=== PATIENT | female | born 1995 | race Caucasian/White ===

== ENCOUNTER 2017-10-22 18:44 | Emergency (ER) | payer SELFPAY ==
[~2017-10-22] VITALS: Ht 172.7 cm; Wt 120.0 kg
[2017-10-22 18:45] VITALS: BP 166/97; PULSE 88; RESP 18; TEMP 98.6; O2SAT 99
[2017-10-22 20:20] LABS: BILIRUBIN, URINE NEG (NEG); BLOOD, URINE NEG (NEG); GLUCOSE,URINE NEG (NEG); KETONE, URINE NEG (NEG); NITRITE,URINE NEG (NEG); SQUAMOUS EPITHELIAL CELL URINE 2 /hpf (0-5); URINE COLOR YELLOW (YELLW/STRAW); URINE LEUKOCYTE ESTERASE NEG (NEG)
--- NOTE | 2017-10-22 21:16 | PD ---
HPI Chief Complaint: Abdominal Pain Time Seen by Provider: 20:44 Travel History International Travel<30 days: No Contact w/Intl Traveler<30days: No Traveled to known affect area: No History of Present Illness HPI 22-year-old female presents to the ED for evaluation of 2 day history of episodic lower abdominal pain. Onset at rest. Described as a pressure. Maximally 8/10. No alleviating or exacerbating factors reported. Patient denies fever, chills, nausea, vomiting, dysuria, urinary urgency, back pain, vaginal discharge, vaginal bleeding, changes in bowel habits. Patient states last menstrual period 09/26/17. She endorses unprotected sex with a single male partner. She is unsure of the last time she had a pelvic exam. She states that she was worked up for PCOS but never completed the evaluation. [facility] Past Medical History Anxiety: Yes Tetanus Vaccination: > 5 Years Influenza Vaccination: No ?: Unknown LMP: 09/27/17 Social History Alcohol Use: Yes (socially) Tobacco Use: No Substance Use: Yes (marijuana) Allergies-Medications (Allergen,Severity, Reaction): Coded Allergies: Sulfa (Sulfonamide Antibiotics) (Verified Allergy, Unknown, 10/22/17) Reported Meds & Prescriptions Reported Meds & Active Scripts Active No Active Prescriptions or Reported Medications Review of Systems Except as stated in HPI: all other systems reviewed are Neg Physical Exam Narrative GENERAL: Well-nourished, well-developed pleasant, obese white female in no acute distress. SKIN: Focused skin assessment warm/dry. HEAD: Normocephalic. EYES: No scleral icterus. No injection or drainage. NECK: Supple, trachea midline. No JVD or lymphadenopathy. CARDIOVASCULAR: Regular rate and rhythm without murmurs, gallops, or rubs. RESPIRATORY: Breath sounds clear and equal bilaterally. No accessory muscle use. GASTROINTESTINAL: Abdomen soft, nondistended. Tender to palpation in bilateral lower abdominal quadrants. Active bowel sounds. MUSCULOSKELETAL: No cyanosis, or edema. BACK: Nontender without obvious deformity. No CVA tenderness. Data Data Last Documented VS Vital Signs Date Time Temp Pulse Resp B/P (MAP) Pulse Ox O2 Delivery O2 Flow Rate FiO2 10/22/17 23:28 10/22/17 18:45 98.6 88 18 99 Room Air Orders Orders Urinalysis - C+S If Indicated (10/22/17 19:18) Ed Urine Pregnancytest Poc (10/22/17 19:18) Ct Abd/Pel W Iv Contrast(Rout) (10/22/17 21:13) Complete Blood Count With Diff (10/22/17 21:16) Comprehensive Metabolic Panel (10/22/17 21:16) Lactic Acid (10/22/17 21:16) ^ Insert Iv (10/22/17 21:16) Iohexol 350 Inj (Omnipaque 350 Inj) (10/22/17 22:50) Ed Discharge Order (10/22/17 23:14) Labs Laboratory Tests Test 10/22/17 19:40 10/22/17 21:30 10/22/17 21:35 Urine Color YELLOW Urine Turbidity CLEAR Urine pH 7.0 Urine Specific [place] 1.016 Urine Protein NEG mg/dL Urine Glucose (UA) NEG mg/dL Urine Ketones NEG mg/dL Urine Occult Blood NEG Urine Nitrite NEG Urine Bilirubin NEG Urine Urobilinogen LESS THAN 2.0 MG/DL Urine Leukocyte Esterase NEG Urine RBC 1 /hpf Urine Squamous Epithelial Cells 2 /hpf Microscopic Urinalysis Comment CULT NOT INDICATED White Blood Count 12.2 TH/MM3 Red Blood Count 5.18 MIL/MM3 Hemoglobin 13.8 GM/DL Hematocrit 41.3 % Mean Corpuscular Volume 79.9 FL Mean Corpuscular Hemoglobin 26.7 PG Mean Corpuscular Hemoglobin Concent 33.4 % Red Cell Distribution Width 14.0 % Platelet Count 268 TH/MM3 Mean Platelet Volume 9.3 FL Neutrophils (%) (Auto) 63.7 % Lymphocytes (%) (Auto) 27.3 % Monocytes (%) (Auto) 7.2 % Eosinophils (%) (Auto) 1.4 % Basophils (%) (Auto) 0.4 % Neutrophils # (Auto) 7.8 TH/MM3 Lymphocytes # (Auto) 3.3 TH/MM3 Monocytes # (Auto) 0.9 TH/MM3 Eosinophils # (Auto) 0.2 TH/MM3 Basophils # (Auto) 0.0 TH/MM3 CBC Comment DIFF FINAL Differential Comment Blood Urea Nitrogen 7 MG/DL Creatinine 0.66 MG/DL Random Glucose 62 MG/DL Total Protein 8.6 GM/DL Albumin 3.6 GM/DL Calcium Level 9.0 MG/DL Alkaline Phosphatase 89 U/L Aspartate Amino Transf (AST/SGOT) 36 U/L Alanine Aminotransferase (ALT/SGPT) 14 U/L Total Bilirubin 1.0 MG/DL Sodium Level 135 MEQ/L Potassium Level 4.9 MEQ/L Chloride Level 106 MEQ/L Carbon Dioxide Level 20.5 MEQ/L Anion Gap 9 MEQ/L Estimat Glomerular Filtration Rate 110 ML/MIN Lactic Acid Level 0.8 mmol/L MDM Medical Decision Making Medical Screen Exam Complete: Yes Emergency Medical Condition: Yes Differential Diagnosis Musculoskeletal pain versus dysmenorrhea versus UTI versus versus torsion ovary versus early appendicitis versus other Narrative Course 22-year-old female presents to the ED for evaluation of 2 day history of episodic lower abdominal pain. Patient denies fever, chills, nausea, vomiting, dysuria, urinary urgency, back pain, vaginal discharge, vaginal bleeding, changes in bowel habits. LMP 09/26/17. She endorses unprotected sex with a single male partner. She states that she was worked up for PCOS but never completed the evaluation. Currently asymptomatic. Vitals reviewed. Physical exam reveals a nontoxic-appearing white female in no acute distress. Chest CTA B. Abdomen soft, tender to palpation in bilateral lower quadrants and suprapubic region. Exam otherwise unremarkable. CBC: Mild elevation of the white count, likely stress related. CMP: No concerning abnormalities. Lactic acid 0.8. UA: No culture indicated. CT abdomen and pelvis: Bilateral ovarian cysts, right side 7.74.6 cm. Left 5.3 cm. I discussed the results of the workup with the patient. She was provided copies of the CT report. She is instructed to follow up with a client architect, return for worsening symptoms. She indicated understanding of the instructions and is agreeable with the care plan. The patient is stable and discharged home. Diagnosis Primary Impression: Ovarian cyst Qualified Codes: N83.201 - Unspecified ovarian cyst, right side; N83.202 - Unspecified ovarian cyst, left side Referrals: [facility] Patient Instructions: General Instructions, Ovarian Cyst (ED) Scripts No Active Prescriptions or Reported Meds Disposition: DISCHARGE HOME Condition: Stable Marta Nunez Oct 22, 2017 21:16
[2017-10-22 21:56] LABS: AUTOMATED NEUTROPHIL # 7.8 TH/MM3 (1.8-7.7); BASOPHIL % 0.4 % (0.0-2.0); EOSINOPHIL # 0.2 TH/MM3 (0-0.4); EOSINOPHIL % 1.4 % (0.0-4.0); HEMATOCRIT 41.3 % (35.0-46.0); HEMOGLOBIN 13.8 GM/DL (11.6-15.3); LYMPH % 27.3 % (9.0-44.0); LYMPHOCYTE # 3.3 TH/MM3 (1.0-4.8); MEAN CELL VOLUME 79.9 FL (80.0-100.0); MEAN CORPUSCULAR HEMOGLOBIN 26.7 PG (27.0-34.0); MEAN CORPUSCULAR HGB CONC 33.4 % (32.0-36.0); MEAN PLATELET VOLUME 9.3 FL (7.0-11.0); MONO % 7.2 % (0.0-8.0); MONOCYTE # 0.9 TH/MM3 (0-0.9); NEUT % 63.7 % (16.0-70.0); PLATELET COUNT 268 TH/MM3 (150-450); RED BLOOD COUNT 5.18 MIL/MM3 (4.00-5.30); WHITE BLOOD COUNT 12.2 TH/MM3 (4.0-11.0)
[2017-10-22 22:09] LABS: ALBUMIN 3.6 GM/DL (3.4-5.0); AST (GOT) 36 U/L (15-37); BICARBONATE 20.5 MEQ/L (21.0-32.0); BLOOD UREA NITROGEN 7 MG/DL (7-18); CHLORIDE 106 MEQ/L (98-107); CREATININE 0.66 MG/DL (0.50-1.00); GLOMERULAR FILTRATION RATE 110 ML/MIN (>89); GLUCOSE,RANDOM 62 MG/DL (74-106); SODIUM (NA) 135 MEQ/L (136-145)
[2017-10-22 22:10] LABS: ALT (GPT) 14 U/L (10-53)
[2017-10-22 22:12] LABS: ALKALINE PHOSPHATASE 89 U/L (45-117); TOTAL PROTEIN 8.6 GM/DL (6.4-8.2)
[2017-10-22] MEDS ORDERED: IOHEXOL 350 MG/ML 10 ML VIAL (for RAD DIAG) IVCONTRAST ONE (22:50)
--- NOTE | 2017-10-22 23:06 | RADRPT ---
EXAM DATE/TIME: 10/22/2017 22:45 [place] COMPARISON: No previous studies available for comparison. INDICATIONS : Lower abdominal pain. IV CONTRAST: 100 cc Omnipaque 350 (iohexol) IV ORAL CONTRAST: No oral contrast ingested. RADIATION DOSE: 16.92 CTDIvol (mGy) MEDICAL HISTORY : None SURGICAL HISTORY : None. ENCOUNTER: Initial ACUITY: 2 days PAIN SCALE: 8/10 LOCATION: Bilateral lower quadrant TECHNIQUE: Volumetric scanning of the abdomen and pelvis was performed. Using automated exposure control and ad justment of the mA and/or kV according to patient size, radiation dose was kept as low as reasonably achievable to obtain optimal diagnostic quality images. DICOM format image data is available electro nically for review and comparison. FINDINGS: LOWER LUNGS: The visualized lower lungs are clear. LIVER: Homogeneous density without lesion. There is no dilation of the biliary tree. No calcified gallston es. SPLEEN: Mildly enlarged measuring 15.6 cm. No lesion is visualized. PANCREAS: Within normal limits. KIDNEYS: Normal in size and shape. There is no mass, stone or hydronephrosis. ADRENAL GLANDS: Within normal limits. VASCULAR: There is no aortic aneurysm. BOWEL/MESENTERY: The stomach, small bowel, and colon demonstrate no acute abnormality. There is no free intraperitone al air or fluid. Appendix is normal. ABDOMINAL WALL: Within normal limits. RETROPERITONEUM: There is no lymphadenopathy. BLADDER: No wall thickening or mass. REPRODUCTIVE: There is a cystic lesion in the left adnexa arising from the left ovary measuring 5.3 cm. It has a si mple appearance. There is also a right adnexal cystic lesion containing a septation measuring approxi mately 7.7 x 4.6 cm. Uterus demonstrates no abnormality. INGUINAL: There is no lymphadenopathy or hernia. MUSCULOSKELETAL: No acute osseous abnormality is identified. CONCLUSION: 1. There are bilateral ovarian cystic lesions, the largest on the right. The right ovarian cystic les ion contains a septation and measures up to 7.7 x 4.6 cm. The left ovarian cystic lesion appears simp le and measures 5.3 cm. Given the size and complexity, suggest followup pelvis ultrasound to confirm resolution. 2. Mild splenomegaly. Rishabh Martinez MD on October 22, 2017 at 23:00 Board Certified Radiologist. This report was verified electronically.
== END 2017-10-22 23:29 | disposition home or self-care (01) ==
LOC: NEPC 18:44
DX: N83.201 Unspecified ovarian cyst, right side (principal); N83.202 Unspecified ovarian cyst, left side; F12.90 Cannabis use, unspecified, uncomplicated
CPT/HCPCS: 74177; 80053; 81001; 83605; 84703; 85025; 99284; Q9967